=== PATIENT | female | born 1970 | race African-American/Black ===

== ENCOUNTER 2017-12-27 15:00 | Emergency (ER) | payer SELFPAY ==
[2017-12-27] MEDS ORDERED: ASPIRIN 81 MG TABLET, CHEWABLE PO ONE (15:22)
--- NOTE | 2017-12-27 15:48 | ER Document Report ---
ED Medical Screen (RME) - General Chief Complaint: Shortness Of Breath Stated Complaint: SHORTNES OF BREATH Time Seen by Provider: 12/27/17 15:20 Mode of Arrival: Ambulatory Information source: Patient Notes: 47-year-old female presents with complaints of left arm dull sensation neck sensation yesterday associated with shortness of breath. Patient has she had a similar episode when she was in [place], patient did recently travel here from there I have greeted and performed a rapid initial assessment of this patient. A comprehensive ED assessment and evaluation of the patient, analysis of test results and completion of the medical decision making process will be conducted by additional ED providers. PHYSICAL EXAMINATION: GENERAL: Well-appearing, well-nourished and in no acute distress. HEAD: Atraumatic, normocephalic. EYES: Pupils equal round extraocular movements intact, conjunctiva are normal. ENT: Nares patent NECK: Normal range of motion LUNGS: No respiratory distress Musculoskeletal: Normal range of motion NEUROLOGICAL: Normal speech, normal gait. PSYCH: Normal mood, normal affect. SKIN: Warm, Dry, normal turgor, no rashes or lesions noted. TRAVEL OUTSIDE OF THE [place] IN LAST 30 DAYS: No - Related Data Allergies/Adverse Reactions: No Known Allergies Allergy (Verified 12/27/17 15:26) Past Medical History - Social History Chew tobacco use (# tins/day): No Frequency of alcohol use: Occasional Drug Abuse: None Renal/ Medical History: Denies: Hx Peritoneal Dialysis Physical Exam - Vital signs Vitals: Temp Pulse Resp BP Pulse Ox 98.1 F 65 16 143/78 H 100 12/27/17 15:16 12/27/17 15:16 12/27/17 15:16 12/27/17 15:16 12/27/17 15:16 Course - Vital Signs Vital signs: Temp Pulse Resp BP Pulse Ox 98.1 F 65 16 143/78 H 100 12/27/17 15:16 12/27/17 15:16 12/27/17 15:16 12/27/17 15:16 12/27/17 15:16
--- NOTE | 2017-12-27 16:24 | RADIOLOGY REPORT (SQ) ---
EXAM DESCRIPTION: CHEST SINGLE VIEW COMPLETED DATE/TIME: 12/27/2017 4:15 pm REASON FOR STUDY: chest pain sob COMPARISON: None. EXAM PARAMETERS: NUMBER OF VIEWS: One view. TECHNIQUE: Single frontal radiographic view of the chest acquired. RADIATION DOSE: NA LIMITATIONS: None. FINDINGS: LUNGS AND PLEURA: No opacities, masses or pneumothorax. No pleural effusion. MEDIASTINUM AND HILAR STRUCTURES: No masses. Contour normal. HEART AND VASCULAR STRUCTURES: Heart normal in size. Normal vasculature. BONES: No acute findings. HARDWARE: None in the chest. OTHER: No other significant finding. IMPRESSION: NO ACUTE RADIOGRAPHIC FINDING IN THE CHEST. TECHNICAL DOCUMENTATION: JOB ID: [id number] [employer]- All Rights Reserved Reading location - IP/workstation name: [email or web address]
[2017-12-27 16:33] LABS: ABSOLUTE EOSINOPHILS # (AUTO) 0.1 10^3/uL (0.0-0.6); ABSOLUTE LYMPHOCYTES (AUTO) 1.4 10^3/uL (0.5-4.7); ABSOLUTE MONOCYTES (AUTO) 0.5 10^3/uL (0.1-1.4); ABSOLUTE NEUT (AUTO) 1.9 10^3/uL (1.7-8.2); EOSINOPHILS % (AUTO) 1.7 % (0-6); HEMATOCRIT 42.2 % (36.0-47.0); HEMOGLOBIN 14.1 g/dL (12.0-15.5); LYMPHOCYTES % (AUTO) 35.9 % (13-45); MEAN CORPUSCULAR HEMOGLOBIN 29.4 pg (27.0-33.4); MEAN CORPUSCULAR HGB CONC 33.4 g/dL (32.0-36.0); MEAN CORPUSCULAR VOLUME 88 fl (80-97); MONOCYTES % (AUTO) 12.3 % (3-13); PLATELET COUNT 298 10^3/uL (150-450); RED BLOOD COUNT 4.79 10^6/uL (3.72-5.28); RED CELL DISTRIBUTION WIDTH 14.1 % (11.5-14.0); SEGMENTED NEUTROPHILS % (AUTO) 49.1 % (42-78); TOTAL CELLS COUNTED % (AUTO) 100 %; WHITE BLOOD COUNT 3.9 10^3/uL (4.0-10.5)
[2017-12-27 16:49] LABS: ALANINE AMINOTRANSFERASE 32 U/L (9-52); ALBUMIN 4.7 g/dL (3.5-5.0); ALKALINE PHOSPHATASE 77 U/L (38-126); ANION GAP 13 (5-19); ASPARTATE AMINO TRANSFERASE 20 U/L (14-36); BILIRUBIN,DIRECT 0.3 mg/dL (0.0-0.4); BILIRUBIN,TOTAL 0.9 mg/dL (0.2-1.3); BLOOD UREA NITROGEN 8 mg/dL (7-20); CALCIUM 10.4 mg/dL (8.4-10.2); CARBON DIOXIDE 22 mmol/L (22-30); CHLORIDE 109 mmol/L (98-107); CREATINE KINASE 104 U/L (30-135); GLUCOSE 87 mg/dL (75-110); POTASSIUM 3.9 mmol/L (3.6-5.0); SODIUM 143.8 mmol/L (137-145); TOTAL PROTEIN 7.7 g/dL (6.3-8.2)
[2017-12-27 17:13] LABS: CREATINE KINASE MB 0.56 ng/mL (<4.55)
[2017-12-27 17:23] LABS: TROPONIN I < 0.012 ng/mL
--- NOTE | 2017-12-27 18:27 | ER Document Report ---
ED General - General Chief Complaint: Shortness Of Breath Stated Complaint: SHORTNES OF BREATH Time Seen by Provider: 12/27/17 15:20 Mode of Arrival: Ambulatory Information source: Patient Notes: This is a 47-year-old female with no medical problems who presents to the emergency room with shortness of breath. Patient states she has had shortness of breath on and off for the last year. She has moved here from [place] in November. She states that she did go to the emergency room with similar symptoms while she was in [place] approximately 6 months ago at which time she had a CAT scan of her chest with showed no blood clots or pulmonary abnormalities. Patient denies fever, chills, cough or recent illnesses. Patient denies any lower extremity swelling or pain. TRAVEL OUTSIDE OF THE [place] IN LAST 30 DAYS: No - HPI Onset: Just prior to arrival Onset/Duration: Gradual Quality of pain: No pain Severity: None Pain Level: Denies Associated symptoms: Shortness of breath, Other - Palpitations. denies: Chest pain, Fever Exacerbated by: Movement Relieved by: Denies Similar symptoms previously: No Recently seen / treated by doctor: No - Related Data Allergies/Adverse Reactions: No Known Allergies Allergy (Verified 12/27/17 15:26) Past Medical History - General Information source: Patient - Social History Smoking Status: Former Smoker Cigarette use (# per day): No Chew tobacco use (# tins/day): No Smoking Education Provided: No Frequency of alcohol use: Occasional Drug Abuse: None Lives with: Family Family History: None Patient has suicidal ideation: No Patient has homicidal ideation: No - Medical History Medical History: Negative Renal/ Medical History: Denies: Hx Peritoneal Dialysis Surgical Hx: Negative Review of Systems - Review of Systems Constitutional: denies: Chills, Fever EENT: No symptoms reported Cardiovascular: No symptoms reported Respiratory: See HPI Gastrointestinal: No symptoms reported Genitourinary: No symptoms reported Female Genitourinary: No symptoms reported Musculoskeletal: No symptoms reported Skin: No symptoms reported Hematologic/Lymphatic: No symptoms reported Neurological/Psychological: No symptoms reported Physical Exam - Vital signs Vitals: Temp Pulse Resp BP Pulse Ox 98.1 F 65 16 143/78 H 100 12/27/17 15:16 12/27/17 15:16 12/27/17 15:16 12/27/17 15:16 12/27/17 15:16 Notes: Physical exam: GENERAL: 47-year-old female, alert and oriented 3, no acute distress HEAD: Atraumatic, normocephalic. EYES: Pupils equal round and reactive to light, extraocular movements intact, sclera anicteric, conjunctiva are normal. ENT: TMs normal, nares patent, oropharynx clear without exudates. Moist mucous membranes. NECK: Normal range of motion, supple without obvious mass or JVD. LUNGS: Breath sounds clear to auscultation bilaterally and equal. No wheezes rales or rhonchi. HEART: Regular rate and rhythm without murmurs, rubs or gallops. ABDOMEN: Soft, normoactive bowel sounds. No tenderness to palpation. No guarding, no rebound. No masses appreciated. EXTREMITIES: Normal range of motion, no pitting or edema. No clubbing or cyanosis. NEUROLOGICAL: Cranial nerves II through XII grossly intact. Normal speech, moving all extremities. PSYCH: Normal mood, normal affect. SKIN: Warm, Dry, normal turgor, no rashes or lesions noted. Course - Re-evaluation Re-evalutation: 12/27/17 18:27 Note: Patient has no history of cancer. She is not on any exogenous estrogen. She has not had any recent trauma or surgery. She has no prior history of VTE, her oxygen saturation is 100% on room air. Her heart rate is 63. She has not had any asymmetry of her lower extremities. She is PERC negative and has a negative d-dimer. This puts her at very low risk for pulmonary embolism. It is possible that she is having an irregular heartbeat at times, however today's EKG looks quite good. I will have her follow-up by cardiology since she has had symptoms on and off for the past year. - Vital Signs Vital signs: Temp Pulse Resp BP Pulse Ox 98.1 F 65 16 142/79 H 100 12/27/17 18:41 12/27/17 15:16 12/27/17 18:41 12/27/17 18:41 12/27/17 18:41 - Laboratory Result Diagrams: 12/27/17 15:55 12/27/17 15:55 Laboratory results interpreted by me: 12/27/17 12/27/17 15:55 15:55 WBC 3.9 L RDW 14.1 H Chloride 109 H Calcium 10.4 H - Diagnostic Test Radiology reviewed: Image reviewed, Reports reviewed - Chest x-ray shows no infiltrates or effusions. There is an azygos fissure which is a normal variant. I discussed these findings with Dr. Sequeira of radiology. - EKG Interpretation by Me Rate: Normal Rhythm: NSR - EKG shows normal sinus rhythm with a ventricular rate of 63, no acute ST-T wave changes Discharge - Discharge Clinical Impression: Palpitations Condition: Stable Disposition: HOME, SELF-CARE Instructions: Palpitations (Irregular or Rapid Heartrate) ([facility]) Additional Instructions: Thank you for choosing [facility] for your care. The examination and treatment you have received in the Emergency Department today has been rendered on an emergency basis only and is not intended to be a substitute for complete medical care. You should contact your doctor as it is important that she/he examine you for any new or remaining problems. If given a copy of any lab tests or radiology reports, please bring them with you when you see your physician. If your problem worsens or new symptoms appear and you are unable to arrange prompt follow-up care, return to the Emergency Department. Specific signs to look out for: Worsening shortness of breath, wheezing or any concerns or getting worse. Any other instructions: Avoid caffeine and diet sodas. Follow-up with Dr. Ramirez who is a spinning machine operator. It is also important to follow-up with a primary care doctor: I left the number for 3 affiliated with the hospital below. Dr. Monserrat Matias Schmidt [address], [place] [address] [phone] Dr Pickering Address: [address] , [place] [address] Dr Sandoval Address: [address] , [place] [address] If you don't have insurance: follow-up at the [facility] which is a free clinic. [address], [place] [address] [phone] Referrals: MARK RAMIREZ MD [ACTIVE STAFF] - Follow up as needed (This is the number the spinning machine operator: Call the number for follow-up appointment.)
[2017-12-27 18:44] VITALS: BP 142/79
--- NOTE | 2017-12-27 21:55 | EKG REPORT ---
SEVERITY:- NORMAL ECG - SINUS RHYTHM : Confirmed by: Otis Ramirez 27-Dec-2017 21:54:27
== END 2017-12-27 18:44 | disposition home or self-care (01) ==
LOC: ER 15:00
DX: R00.2 Palpitations (principal); R06.02 Shortness of breath; Z87.891 Personal history of nicotine dependence
CPT/HCPCS: 36415; 71045; 80053; 82550; 82553; 84484; 85025; 85379; 93005; 93010; 99285